=== PATIENT | female | born 1970 | race Caucasian/White ===

== ENCOUNTER → 2018-09-17 | Outpatient (CLI) | payer OTHER ==
--- NOTE | 2018-09-18 07:09 | MR ---
EXAMINATION TYPE: MR cervical spine wo con DATE OF EXAM: 09/17/2018 COMPARISON: None HISTORY: Paresthesias / Syncope / TECHNIQUE: Multiplanar, multisequence images of the cervical spine were acquired. Cervical vertebra have normal alignment. There is degenerative disc space narrowing with anterior and posterior endplate spur formation and disc bulging at C5-6 and C6-7. There is moderate posterior spu rring and disc bulging at C5-6. There is mild impingement on the cervical spinal cord. The canal is n arrowed to 7 mm. There is slight increased signal in the cervical cord consistent with edema. The bra in stem is intact. Posterior elements are intact. I see no focal bone destruction. IMPRESSION: Moderate posterior spurring and disc bulging at C5-6 with resultant spinal stenosis of 7 mm. There is mild focal edema in the cervical cord at this level also.
== END | disposition home or self-care (01) ==
LOC: RADMRIMAIN 15:04
PROVIDERS: ATTEND Psychiatry & Neurology Neurology
DX: M48.02 Spinal stenosis, cervical region (principal); M50.222 Other cervical disc displacement at C5-C6 level; M51.36 Other intervertebral disc degeneration, lumbar region; R55 Syncope and collapse; R20.2 Paresthesia of skin
CPT/HCPCS: 72141

== ENCOUNTER → 2019-07-06 | Outpatient (CLI) | payer OTHER ==
[2019-07-06 12:19] LABS: INR 0.9 (<1.2); Partial Thromboplastin Time 22.6 sec (22.0-30.0); Prothrombin Time 9.9 sec (9.0-12.0)
[2019-07-06 12:25] LABS: HCT 43.6 % (34.0-46.0); HGB 14.2 gm/dL (11.4-16.0); MCH 30.6 pg (25.0-35.0); MCHC 32.6 g/dL (31.0-37.0); MCV 93.9 fL (80.0-100.0); Mean Platelet Volume 7.8; Platelet Count 215 k/uL (150-450); RBC 4.65 m/uL (3.80-5.40); RDW 13.5 % (11.5-15.5); WBC 5.6 k/uL (3.8-10.6)
[2019-07-06 17:04] LABS: % Iron Saturation 25.84 (12.00-45.00); African American GFR (CKD) 117.9 (60.0-200.0); Albumin 4.3 g/dL (3.80-4.90); Albumin/Globulin Ratio 1.95 (1.60-3.17); Anion Gap 5.2 mmol/L (4.00-12.00); BUN/Creat Ratio 22.86 Ratio (12.00-20.00); Calcium 9.4 mg/dL (8.7-10.3); Carbon Dioxide 26.8 mmol/L (21.6-31.8); Chol/HDL Ratio 4.88; Globulin 2.2 g/dL (1.6-3.3); LDL Cholesterol,Calculated 106.4 mg/dL (0.0-131.0); Magnesium 1.8 mg/dL (1.5-2.4); Non-African American GFR(CKD) 101.7 (60.0-200.0); Phosphorus 2.8 mg/dL (2.4-5.1); Potassium 4.3 mmol/L (3.5-5.5); Total Bilirubin 0.4 mg/dL (0.3-1.2); Total Protein 6.5 g/dL (6.2-8.2); VLDL Calculation 25.6 mg/dL (5.00-40.00)
[2019-07-06 17:13] LABS: Ferritin 89.9 ng/mL (10.0-291.0)
[2019-07-06 17:58] LABS: Hemoglobin A1C 5.9 % (4.0-6.0)
[2019-07-06 18:27] LABS: Folate, Serum 11.8 ng/mL
[2019-07-07 14:58] LABS: Zinc, Serum 68 ug/dL (60-130)
[2019-07-08 07:12] LABS: Vitamin A 38 ug/dL (38-106)
[2019-07-08 14:22] LABS: Vit B1(Thiamine) 61 ug/L (38-122)
[2019-07-08 23:56] LABS: Selenium 111 mcg/L (63-160)
== END | disposition home or self-care (01) ==
LOC: LABWHC1 11:07
PROVIDERS: ATTEND Surgery Plastic and Reconstructive Surgery
DX: E50.9 Vitamin A deficiency, unspecified (principal); K90.9 Intestinal malabsorption, unspecified; E55.9 Vitamin D deficiency, unspecified; K50.90 Crohn's disease, unspecified, without complications; K74.1 Hepatic sclerosis; N18.9 Chronic kidney disease, unspecified
CPT/HCPCS: 36415; 80053; 80061; 82306; 82525; 82607; 82728; 82746; 83036; 83540; 83550; 83735; 83970; 84100; 84134; 84255; 84425; 84443; 84590; 84630; 85027; 85610; 85730

== ENCOUNTER → 2019-10-18 | Outpatient (CLI) | payer OTHER ==
[2019-10-18 12:13] VITALS: BMI 44.6
== END | disposition home or self-care (01) ==
LOC: BARWHC3 08:43
PROVIDERS: ATTEND Surgery Plastic and Reconstructive Surgery
DX: E66.01 Morbid (severe) obesity due to excess calories (principal); Z71.3 Dietary counseling and surveillance; Z68.41 Body mass index [BMI] 40.0-44.9, adult
CPT/HCPCS: 97804

== ENCOUNTER 2019-11-17 08:36 | Day surgery (SDC) | payer OTHER ==
[2019-11-15 14:43] VITALS: BMI 44.9
--- NOTE | 2019-11-17 08:02 | P.GSHP ---
History of Present Illness H&P Date: 11/17/19 CHIEF COMPLAINT: GERD HISTORY OF PRESENT ILLNESS: The patient is a 49-year-old female who presents reports gastroesophageal reflux disease. Upper endoscopy was offered for further evaluation and management. PAST MEDICAL HISTORY: Please see list. PAST SURGICAL HISTORY: Please see list. MEDICATIONS: Please see list. ALLERGIES: Please see list. SOCIAL HISTORY: No illicit drug use FAMILY HISTORY: No reports of Crohn disease or ulcerative colitis. REVIEW OF ORGAN SYSTEMS: CONSTITUTIONAL: No reports of fevers or chills. GI: Denies any blood in stools or constipation. PHYSICAL EXAM: VITAL SIGNS: Stable GENERAL: Well-developed and pleasant in no acute distress. HEENT: No scleral icterus. Extraocular movements grossly intact. Moist buccal mucosa. NECK: Supple without lymphadenopathy. CHEST: Unlabored respirations. Equal bilateral excursions. CARDIOVASCULAR: Regular rate and rhythm. Distal 2+ pulses. ABDOMEN: Soft, nondistended. MUSCULOSKELETAL: No clubbing, cyanosis, or edema. ASSESSMENT: 1. Gastroesophageal reflux disease PLAN: 1. Recommend proceeding with an upper endoscopy Past Medical History Past Medical History: Asthma, COPD, GERD/Reflux, Hyperlipidemia, Hypertension, Seizure Disorder, Sleep Apnea/CPAP/BIPAP Additional Past Medical History / Comment(s): restless leg, IBS, hx of seizure, last one 2018, no rx currently, has had them very intermittantly History of Any Multi-Drug Resistant Organisms: None Reported Past Surgical History: Orthopedic Surgery Additional Past Surgical History / Comment(s): partial rt shoulder replacement Past Anesthesia/Blood Transfusion Reactions: No Reported Reaction Smoking Status: Current every day smoker Medications and Allergies Home Medications Medication Instructions Recorded Confirmed Type Dextroamphetamine/Amphetamine 10 mg PO BID 07/12/19 11/15/19 History [Adderall] Dicyclomine [Bentyl] 10 mg PO BID 07/12/19 11/15/19 History Ondansetron [Zofran] 4 mg PO DIRECTED 07/12/19 11/15/19 History Pantoprazole Sodium [Protonix] 40 mg PO DAILY 07/12/19 11/15/19 History Pravastatin Sodium [Pravachol] 20 mg PO DAILY 07/12/19 11/15/19 History Sertraline [Zoloft] 200 mg PO QAM 07/12/19 11/15/19 History lisinopriL [Zestril] 10 mg PO QAM 07/12/19 11/15/19 History rOPINIRole HCL [Requip] 1 mg PO HS 07/12/19 11/15/19 History Albuterol Sulfate [Albuterol 1 puff PO Q4-6H PRN 11/10/19 11/15/19 History Sulfate Hfa] Cariprazine HCl [Vraylar] 3 mg PO HS 11/10/19 11/15/19 History Diclofenac Sodium [Voltaren] 75 mg PO BID 11/10/19 11/15/19 History Fluticasone Propionate [Flovent 50 mcg INHALATION DAILY 11/10/19 11/15/19 History Diskus] Ipratropium/Albuterol Sulfate 1 puff INHALATION QID 11/10/19 11/15/19 History [Combivent Respimat Inhaler] Pregabalin [Lyrica] 75 mg PO BID 11/10/19 11/15/19 History DULoxetine HCL [Cymbalta] 60 mg PO DAILY 11/15/19 11/15/19 History Diclofenac Sodium Gel [Voltaren 4 gm TOPICAL QID PRN 11/15/19 11/15/19 History Gel] Allergies Allergy/AdvReac Type Severity Reaction Status Date / Time Iodinated Contrast Media Allergy Dyspnea Verified 11/15/19 14:34
[~2019-11-17 08:36] MED LIST: LACTATED RINGERS 1,000 ML IV SCH
[2019-11-17 09:03] VITALS: RESP 16; TEMP 97.2
[2019-11-17] MEDS ORDERED: LIDOCAINE 1% (10MG/ML) FOR IV START INTRADERMA ONE (09:10)
[2019-11-17] MEDS ORDERED: PROPOFOL 10 MG/ML 20 ML VIAL IV ONE (09:16)
[2019-11-17] MEDS ORDERED: LIDOCAINE 1% INJ 10MG/ML (20 ML MDV) ONE (09:16)
--- NOTE | 2019-11-17 09:30 | P.PCN ---
Date of Procedure: 11/17/19 Description of Procedure: PREOPERATIVE DIAGNOSIS: Gastroesophageal reflux disease. Morbid obesity. Tobacco abuse POSTOPERATIVE DIAGNOSIS: Morbid obesity. Gastritis. Gastroesophageal reflux disease. Tobacco abuse OPERATION: Esophagogastroduodenoscopy with biopsies along antrum. SURGEON: Paola Perez MD ANESTHESIA: MAC. INDICATIONS: The patient is a 49-year-old female who presents with a history of reflux disease. Benefits and risks of the procedure were described. Informed consent was obtained. DESCRIPTION: The patient was brought into the endoscopy suite and laid in the left lateral decubitus position. An Olympus gastroscope was passed along the posterior oropharynx down to the distal esophagus where the squamocolumnar junction was encountered at 37 cm from the incisors. The stomach was entered and no bile reflux was found. Additional findings are listed below. Biopsies with cold f orceps were obtained of the antrum. The first through third portion of the duodenum was examined and unremarkable. Retroflexion of the scope confirmed Hill grade 2 lower esophageal valve. The squamocolumnar junction demonstrated LA grade B erosive esophagitis. The stomach was desufflated. The patient tolerated the procedure well. FINDINGS: Squamocolumnar junction 37 cm from the incisors. Diaphragmatic hiatus at 38 cm. Hiatal hernia, 1 cm, sliding type Hill grade 2 lower esophageal valve. LA grade B erosive esophagitis. No active duodenitis. Chronic gastritis Moderately enlarged stomach RECOMMENDATIONS: Recommend evaluation for sleeve gastrectomy due to very large stomach With history of irritable bowel syndrome, gastric bypass contraindicated Strict tobacco cessation and advised Plan - Discharge Summary Discharge Rx Participant: No New Discharge Prescriptions: Continue Pantoprazole Sodium [Protonix] 40 mg PO DAILY Sertraline [Zoloft] 200 mg PO QAM Dextroamphetamine/Amphetamine [Adderall] 10 mg PO BID Dicyclomine [Bentyl] 10 mg PO BID rOPINIRole HCL [Requip] 1 mg PO HS lisinopriL [Zestril] 10 mg PO QAM Pravastatin Sodium [Pravachol] 20 mg PO DAILY Ondansetron [Zofran] 4 mg PO DIRECTED Ipratropium/Albuterol Sulfate [Combivent Respimat Inhaler] 1 puff INHALATION QID Fluticasone Propionate [Flovent Diskus] 50 mcg INHALATION DAILY Albuterol Sulfate [Albuterol Sulfate Hfa] 1 puff PO Q4-6H PRN PRN Reason: Shortness Of Breath Pregabalin [Lyrica] 75 mg PO BID Diclofenac Sodium [Voltaren] 75 mg PO BID Cariprazine HCl [Vraylar] 3 mg PO HS DULoxetine HCL [Cymbalta] 60 mg PO DAILY Diclofenac Sodium Gel [Voltaren Gel] 4 gm TOPICAL QID PRN PRN Reason: Pain Discharge Medication List Dextroamphetamine/Amphetamine [Adderall] 10 mg PO BID 07/12/19 [History] Dicyclomine [Bentyl] 10 mg PO BID 07/12/19 [History] Ondansetron [Zofran] 4 mg PO DIRECTED 07/12/19 [History] Pantoprazole Sodium [Protonix] 40 mg PO DAILY 07/12/19 [History] Pravastatin Sodium [Pravachol] 20 mg PO DAILY 07/12/19 [History] Sertraline [Zoloft] 200 mg PO QAM 07/12/19 [History] lisinopriL [Zestril] 10 mg PO QAM 07/12/19 [History] rOPINIRole HCL [Requip] 1 mg PO HS 07/12/19 [History] Albuterol Sulfate [Albuterol Sulfate Hfa] 1 puff PO Q4-6H PRN 11/10/19 [History] Cariprazine HCl [Vraylar] 3 mg PO HS 11/10/19 [History] Diclofenac Sodium [Voltaren] 75 mg PO BID 11/10/19 [History] Fluticasone Propionate [Flovent Diskus] 50 mcg INHALATION DAILY 11/10/19 [History] Ipratropium/Albuterol Sulfate [Combivent Respimat Inhaler] 1 puff INHALATION QID 11/10/19 [History] Pregabalin [Lyrica] 75 mg PO BID 11/10/19 [History] DULoxetine HCL [Cymbalta] 60 mg PO DAILY 11/15/19 [History] Diclofenac Sodium Gel [Voltaren Gel] 4 gm TOPICAL QID PRN 11/15/19 [History] [facility] [place] [facility] [place] [facility] Patient Instructions/Handouts: How to Stop Smoking (ED), Gastritis (DC) Discharge Disposition: HOME SELF-CARE
[2019-11-17 09:46] VITALS: BP 131/84; PULSE 78
== END 2019-11-17 10:01 | disposition home or self-care (01) ==
LOC: ORWHC2ENDO 08:36
PROVIDERS: ATTEND Surgery Plastic and Reconstructive Surgery
DX: K22.10 Ulcer of esophagus without bleeding (principal); K21.0 Gastro-esophageal reflux disease with esophagitis; K29.50 Unspecified chronic gastritis without bleeding; K44.9 Diaphragmatic hernia without obstruction or gangrene; K31.89 Other diseases of stomach and duodenum; J44.9 Chronic obstructive pulmonary disease, unspecified; E78.5 Hyperlipidemia, unspecified; I10 Essential (primary) hypertension; G40.909 Epilepsy, unspecified, not intractable, without status epilepticus; G47.30 Sleep apnea, unspecified; Z99.89 Dependence on other enabling machines and devices; Z96.611 Presence of right artificial shoulder joint; F17.200 Nicotine dependence, unspecified, uncomplicated; Z79.899 Other long term (current) drug therapy; Z91.041 Radiographic dye allergy status
CPT/HCPCS: 81025; 88305; 43239; J2001; J2704

== ENCOUNTER 2020-04-20 07:55 | Emergency (ER) | payer OTHER ==
[2020-04-20] MEDS ORDERED: KETOROLAC 15 MG/ML 1 ML VIAL IM STA (08:26)
[2020-04-20] MEDS ORDERED: HYDROmorphone 1 MG/ML 1 ML SYRINGE IM STA (08:26)
[2020-04-20] MEDS ORDERED: GABAPENTIN 300 MG CAP PO STA (08:28)
--- NOTE | 2020-04-20 08:52 | ED ---
General Adult HPI - General Chief complaint: Back Pain/Injury Stated complaint: Siatic nerve pain Time Seen by Provider: 04/20/20 08:00 Source: patient, RN notes reviewed, old records reviewed Mode of arrival: wheelchair Limitations: no limitations - History of Present Illness Initial comments: This is a 49-year-old female who presents to the emergency department complaining of sciatica down her left leg. Patient states it started about 4 weeks ago. Patient states she was in for chronic back pain with her neurologist and they did an injection back and ever since then she's had sciatica. Patient states she's been to the ER for 5 times and given steroids every time but has not taken away the pain. Patient states she has another appointment with a new neurologist in April. Patient states she's had no narcotics. Patient states this pain running down the leg but she has no actual loss of sensation or loss of function. Eyes any recent trauma. Patient denies any urinary retention or incontinence. - Related Data Home Medications Medication Instructions Recorded Confirmed Dextroamphetamine/Amphetamine 10 mg PO BID 07/12/19 11/15/19 [Adderall] Dicyclomine [Bentyl] 10 mg PO BID 07/12/19 11/15/19 Ondansetron [Zofran] 4 mg PO DIRECTED 07/12/19 11/15/19 Pantoprazole Sodium [Protonix] 40 mg PO DAILY 07/12/19 11/15/19 Pravastatin Sodium [Pravachol] 20 mg PO DAILY 07/12/19 11/15/19 Sertraline [Zoloft] 200 mg PO QAM 07/12/19 11/15/19 lisinopriL [Zestril] 10 mg PO QAM 07/12/19 11/15/19 rOPINIRole HCL [Requip] 1 mg PO HS 07/12/19 11/15/19 Albuterol Sulfate [Albuterol 1 puff PO Q4-6H PRN 11/10/19 11/15/19 Sulfate Hfa] Cariprazine HCl [Vraylar] 3 mg PO HS 11/10/19 11/15/19 Diclofenac Sodium [Voltaren] 75 mg PO BID 11/10/19 11/15/19 Fluticasone Propionate [Flovent 50 mcg INHALATION DAILY 07/15/20 07/20/20 Diskus] Ipratropium/Albuterol Sulfate 1 puff INHALATION QID 11/10/19 11/15/19 [Combivent Respimat Inhaler] Pregabalin [Lyrica] 75 mg PO BID 11/10/19 11/15/19 DULoxetine HCL [Cymbalta] 60 mg PO DAILY 11/15/19 11/15/19 Diclofenac Sodium Gel [Voltaren 4 gm TOPICAL QID PRN 11/15/19 11/15/19 Gel] Previous Rx's Medication Instructions Recorded Gabapentin [Neurontin] 300 mg PO TID #45 cap 04/20/20 Allergies Allergy/AdvReac Type Severity Reaction Status Date / Time Iodinated Contrast Media Allergy Dyspnea Verified 04/20/20 08:01 Review of Systems ROS Statement: Those systems with pertinent positive or pertinent negative responses have been documented in the HPI. ROS Other: All systems not noted in ROS Statement are negative. Past Medical History Past Medical History: Asthma, COPD, GERD/Reflux, Hyperlipidemia, Hypertension, Seizure Disorder, Sleep Apnea/CPAP/BIPAP Additional Past Medical History / Comment(s): restless leg, IBS, hx of seizure, last one 2018, no rx currently, has had them very intermittantly History of Any Multi-Drug Resistant Organisms: None Reported Past Surgical History: Orthopedic Surgery Additional Past Surgical History / Comment(s): partial rt shoulder replacement Past Anesthesia/Blood Transfusion Reactions: No Reported Reaction Past Psychological History: ADD/ADHD, Bipolar, Depression Smoking Status: Former smoker Past Alcohol Use History: None Reported Past Drug Use History: Marijuana General Exam - General Exam Comments Initial Comments: GENERAL: Patient is well-developed and well-nourished. Patient is nontoxic and well-hydrated and is in moderate distress. ENT: Neck is soft and supple. No significant lymphadenopathy is noted. Oropharynx is clear. Moist mucous membranes. Neck has full range of motion without eliciting any pain. EYES: The sclera were anicteric and conjunctiva were pink and moist. Extraocular movements were intact and pupils were equal round and reactive to light. Eyelids were unremarkable. PULMONARY: Unlabored respirations. Good breath sounds bilaterally. No audible rales rhonchi or wheezing was noted. CARDIOVASCULAR: There is a regular rate and rhythm without any murmurs gallops or rubs. ABDOMEN: Soft and nontender with normal bowel sounds. No palpable organomegaly was noted. There is no palpable pulsatile mass. SKIN: Skin is clear with no lesions or rashes and otherwise unremarkable. NEUROLOGIC: Patient is alert and oriented x3. Cranial nerves II through XII are grossly intact. Motor and sensory are also intact. Normal speech, volume and content. Symmetrical smile. Patient had straight leg pain with lifting of both legs at about 30. MUSCULOSKELETAL: Normal extremities with adequate strength and full range of motion. No lower extremity swelling or edema. No calf tenderness. LYMPHATICS: No significant lymphadenopathy is noted PSYCHIATRIC: Normal psychiatric evaluation. Limitations: no limitations Course Vital Signs 04/20/20 07:58 Temperature 98.2 F Pulse Rate 98 Respiratory 18 Rate Blood Pressure 166/99 O2 Sat by Pulse 99 Oximetry Medical Decision Making - Medical Decision Making Lumbosacral spine shows degenerative disc disease. Disposition Clinical Impression: Sciatica Disposition: HOME SELF-CARE Prescriptions: Gabapentin [Neurontin] 300 mg PO TID #45 cap Is patient prescribed a controlled substance at d/c from ED?: No Referrals: Martinez Gillis MD [Primary Care Provider] - 1-2 days Time of Disposition: 10:37
--- NOTE | 2020-04-20 09:54 | XR ---
EXAM: XR Lumbosacral Spine, 2 or 3 Views CLINICAL HISTORY: ITS.REASON XR Reason: Sciatica TECHNIQUE: Frontal and lateral views of the lumbar spine and sacrum. COMPARISON: No relevant prior studies available. FINDINGS: Vertebrae: Levoscoliosis lumbar spine centered at L2-L3. No acute fracture. Normal alignment. Sacrum/coccyx: Unremarkable as visualized. No acute fracture. Disc spaces: Moderate loss of disc height, greatest at L2-L3. Opposing endplate osteophyte formation. There are some neural foraminal narrowing, greatest at L2-L3. Soft tissues: Unremarkable. IMPRESSION: 1. No fracture or subluxation. 2. Lumbar degenerative disc disease and facet arthropathy.
[2020-04-20 10:58] VITALS: BP 139/79; PULSE 78; RESP 16; TEMP 97.8
== END 2020-04-20 10:57 | disposition home or self-care (01) ==
LOC: EC 07:55
DX: M51.16 Intervertebral disc disorders with radiculopathy, lumbar region (principal); K58.9 Irritable bowel syndrome, unspecified; I10 Essential (primary) hypertension; J44.9 Chronic obstructive pulmonary disease, unspecified; G25.81 Restless legs syndrome; E78.5 Hyperlipidemia, unspecified; K21.9 Gastro-esophageal reflux disease without esophagitis; F32.9 Major depressive disorder, single episode, unspecified; F90.9 Attention-deficit hyperactivity disorder, unspecified type; G47.30 Sleep apnea, unspecified; Z79.899 Other long term (current) drug therapy; Z79.1 Long term (current) use of non-steroidal anti-inflammatories (NSAID); Z79.51 Long term (current) use of inhaled steroids; Z91.041 Radiographic dye allergy status; Z96.611 Presence of right artificial shoulder joint; Z87.891 Personal history of nicotine dependence; Z99.89 Dependence on other enabling machines and devices
CPT/HCPCS: 72110; 99284; 96372 ×2; J1170; J1885

== ENCOUNTER → 2021-12-12 | Outpatient (CLI) | payer MEDICARE, OTHER ==
[2021-12-12 14:53] VITALS: BP 144/87; PULSE 76; TEMP 98.5; BMI 41.8
--- NOTE | 2021-12-12 15:23 | P.HPBAR ---
Bariatric H&P - History & Physicial H&P Date: 12/12/21 History & Physicial: Visit/CC: new patient Patient initial contact: Initial weight: 121.733 kg Initial weight in pounds: 268.38 Height: 5 ft 4.25 in Initial BMI: 45.7 Last weight: Current weight: 111.584 kg Current weight in pounds: 246.00 Current BMI: 41.8 [place] body weight (based on NIH guidelines): 54.998 kg Excess body weight loss: 15.2% The patient is a 51 year-old F who presents for Bariatric Assessment. She has lost 20 pounds in 2 years. She is looking into weight loss. Needs new labs. Need psych eval. Needs re-check and re-do of information as over 2 years out. Blood work re-check. EGD/Colon [place] for studies. EKG and get labs. Past Medical History Past Medical History: Asthma, COPD, GERD/Reflux, Hyperlipidemia, Hypertension, Seizure Disorder, Sleep Apnea/CPAP/BIPAP Additional Past Medical History / Comment(s): restless leg, IBS, hx of seizure, last one 2018, no rx currently, has had them very intermittantly, chronic back pain, cordell knee pain, neuropathy in feet History of Any Multi-Drug Resistant Organisms: None Reported Past Surgical History: Orthopedic Surgery Additional Past Surgical History / Comment(s): partial rt shoulder replacement Past Anesthesia/Blood Transfusion Reactions: No Reported Reaction Past Psychological History: ADD/ADHD, Bipolar, Depression Smoking Status: Former smoker Past Alcohol Use History: None Reported Additional Past Alcohol Use History / Comment(s): states "trying to quit smoking" down to 5-7 cigarettes a day, started as a teen Past Drug Use History: Marijuana Additional Drug Use History / Comment(s): occasional use, instructed to hold 24 hrs prior Surgical - Exam Vital Signs Temp Pulse BP 98.5 F 76 144/87 12/12/21 14:44 12/12/21 14:44 12/12/21 14:44 Bariatric Checklist Checklist: Plan: Checklist: EGD: 1. Hiatal hernia: 2. H. Pylori: HgbA1c: Vitamin D: Smoking: Current every day smoker Primary care physician referral: Maegan Guan Psychiatry clearance: Cardiology clearance: Sleep study: Diet journal: VTE risk score: VTE risk level: Rehab needs at discharge:
== END | disposition home or self-care (01) ==
LOC: BARWHC3 14:01
PROVIDERS: ATTEND Surgery Plastic and Reconstructive Surgery
DX: E66.01 Morbid (severe) obesity due to excess calories (principal); F17.200 Nicotine dependence, unspecified, uncomplicated; E78.5 Hyperlipidemia, unspecified; J44.9 Chronic obstructive pulmonary disease, unspecified; I10 Essential (primary) hypertension; Z68.42 Body mass index [BMI] 45.0-49.9, adult
CPT/HCPCS: 99211

== ENCOUNTER → 2022-07-17 | Outpatient (CLI) | payer MEDICARE ==
[2022-07-17 16:17] VITALS: BP 135/75; PULSE 89; TEMP 98.6; BMI 42.9
--- NOTE | 2022-07-17 16:33 | P.BASOAP ---
Subjective Progress Note Date: 07/17/22 She is looking to get back on track for weight loss surgery. She had lost weight. Needs to start over. Needs new labs. New EGD. Objective - Vital Signs Vital signs: Vital Signs Temp 98.6 F 07/17/22 16:09 Pulse 89 07/17/22 16:09 Resp BP 135/75 07/17/22 16:09 Pulse Ox FiO2 Intake & Output 07/16/22 07/17/22 07/17/22 18:59 06:59 18:59 Weight 114.305 kg Assessment/Plan Plan: Date: 07/17/22 Initial Weight: 121.733 kg Initial BMI: 45.7 Current Weight: 114.305 kg Current BMI: 42.9 Type of Surgery: Total Volume in Band: Previous Volume: Volume Removed: Volume Added: Band Size:
== END ==
LOC: BARWHC3 15:07
PROVIDERS: ATTEND Surgery Plastic and Reconstructive Surgery
DX: E66.01 Morbid (severe) obesity due to excess calories (principal); F17.210 Nicotine dependence, cigarettes, uncomplicated; Z68.41 Body mass index [BMI] 40.0-44.9, adult; Z91.041 Radiographic dye allergy status; Z13.810 Encounter for screening for upper gastrointestinal disorder
CPT/HCPCS: 99211